=== PATIENT | male | born 1995 | race Hispanic/Latino ===

== ENCOUNTER 2017-12-22 05:36 | Emergency (ER) | payer SELFPAY ==
[2017-12-22 06:00] VITALS: BP 146/70; TEMP 98.5; O2SAT 97
[2017-12-22] MEDS ORDERED: PENICILLIN BENZATHINE 1.2 MU 1.2 MU/2 ML SYG IM ONE (06:20)
[2017-12-22] MEDS ORDERED: predniSONE 20 MG TAB PO ONE (06:22)
--- NOTE | 2017-12-22 06:23 | ED.PDOC ---
History of Present Illness - General Chief Complaint: ENT Problem Stated Complaint: sore throat, swollen tongue Time Seen by Provider: 12/22/17 06:15 Source: patient Exam Limitations: no limitations - History of Present Illness Initial Comments: the patient is a 22-year-old male presenting to the emergency room secondary to sore throat and feeling of mild tongue swelling for the last 24 hours is gradually gotten worse. Questionable fevers. Mild nausea. No headache. No syncope. Near-syncope. No chest pain or shortness of breath. Timing/Duration: 24 hours Severity: moderate Improving Factors: nothing Worsening Factors: nothing Associated Symptoms: loss of appetite, nausea/vomiting Allergies/Adverse Reactions: Allergies NO KNOWN ALLERGY Allergy (Verified 12/22/17 05:52) Review of Systems - Review of Systems Constitutional: States: fever, malaise EENTM: States: throat pain, mouth pain Respiratory: States: no symptoms reported Cardiology: States: no symptoms reported Gastrointestinal/Abdominal: States: no symptoms reported Genitourinary: States: no symptoms reported Musculoskeletal: States: no symptoms reported Skin: States: no symptoms reported Neurological: States: no symptoms reported Endocrine: States: no symptoms reported All other Systems: No Change from Baseline Past Medical History (General) - Patient Medical History Hx Seizures: No Hx Stroke: No Hx Dementia: No Hx Asthma: No Hx of COPD: No Hx Cardiac Disorders: No Hx Congestive Heart Failure: No Hx Pacemaker: No Hx Hypertension: No Hx Thyroid Disease: No Hx Diabetes: No Hx Gastroesophageal Reflux: No Hx Renal Disease: No Hx Cancer: No Hx of HIV: No Hx Hepatitis C: No Hx MRSA: No Surgical History: no surgical history - Vaccination History Hx Tetanus, Diphtheria Vaccination: - unknown Hx Influenza Vaccination: No - Social History Hx Alcohol Use: Yes - social Hx Substance Use: Yes - weed daily Family Medical History - Family History Mother Family History: Unknown Physical Exam - Physical Exam General Appearance: Alert, Comfortable, No apparent distress Eye Exam: bilateral normal Ears, Nose, Throat: hearing grossly normal, pharyngeal erythema Neck: full range of motion, supple Respiratory: lungs clear, normal breath sounds, no respiratory distress, no accessory muscle use Cardiovascular/Chest: normal peripheral pulses, regular rate, rhythm, no edema Peripheral Pulses: radial,right: 2+, radial,left: 2+, dorsalis pedis,right: 2+, dorsalis pedis,left: 2+ Gastrointestinal/Abdominal: non tender, soft Rectal Exam: deferred Back Exam: normal inspection, no CVA tenderness Extremity: non-tender, normal inspection, no pedal edema, normal capillary refill 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 Swelling is not really appreciated on exam however due to this being one of his chief complaints of patient we'll go ahead and receive a dose of prednisone 40 mg here. no evidence of any abscess formation on exam. He tested positive for strep and will be receiving Bicillin L-A injection 1,200,000 units. Motrin can be used to help reduce discomfort and topical medications such as Chloraseptic can also be used. He needs to keep himself well-hydrated. ER warnings were given for any worsening. He should keep routine follow up with his primary care doctor. Departure - Departure Clinical Impression: Streptococcal sore throat Disposition: Discharge to Home or Self Care Condition: Fair Departure Forms: ED Discharge - Pt. Copy, Patient Portal Self Enrollment Instructions: DI for Strep Throat Diet: regular diet Activity: increase activity as tolerated Additional Instructions: the patient's a 22-year-old male presenting to the emergency room secondary to a feeling of sore throat and swelling sensation for the last day. Swelling is not really appreciated on exam however due to this being one of his chief complaints of patient we'll go ahead and receive a dose of prednisone 40 mg here. no evidence of any abscess formation on exam. He tested positive for strep and will be receiving Bicillin L-A injection 1,200,000 units. Motrin can be used to help reduce discomfort and topical medications such as Chloraseptic can also be used. He needs to keep himself well-hydrated. ER warnings were given for any worsening. He should keep routine follow up with his primary care doctor.
== END 2017-12-22 06:35 | disposition home or self-care (01) ==
LOC: ER 05:36
DX: J02.0 Streptococcal pharyngitis (principal)
CPT/HCPCS: 87880; J0561; J7512